=== PATIENT | male | born 1950 | race Caucasian/White ===

== ENCOUNTER 2021-06-18 10:36 | Emergency (ER) | payer MEDICARE, SELFPAY ==
[2021-06-18 10:48] VITALS: BP 131/85; PULSE 94; RESP 20; TEMP 36.8; O2SAT 100
--- NOTE | 2021-06-18 11:04 | ED.WOUNDLAC ---
HPI - Wound/Laceration General Chief Complaint: Wound/Laceration Stated Complaint: Skin Sore Time Seen by Provider: 06/18/21 11:05 Source: patient Mode of arrival: ambulatory Limitations: no limitations History of Present Illness HPI narrative: 70-year-old male presented for complaint of blister to the right middle finger, states it got bigger over the last 3 days. Endorses pain with bending his fingers. Denies known injury. Denies fever chills. Has taken one dose of tylenol. Related Data Home Medications Medication Instructions Recorded Confirmed Lantus U-100 Insulin 06/18/21 Novalog 06/18/21 amlodipine 2.5 mg PO 06/18/21 isosorbide mononitrate 30 mg PO DAILY 06/18/21 06/18/21 lovastatin 40 mg PO DAILY 06/18/21 06/18/21 metoprolol succinate 25 mg PO DAILY 06/18/21 06/18/21 nitroglycerin 0.4 mg SUBLINGUAL PRN PRN 06/18/21 06/18/21 Allergies Allergy/AdvReac Type Severity Reaction Status Date / Time morphine Allergy Swelling Verified 06/18/21 11:02 TETANUS Allergy Swelling Uncoded 06/18/21 11:03 of Lip/Tongue/Throat Review of Systems Review of Systems: CONSTITUTIONAL: Denies body aches, fever, chills, or sweats. EYES: Denies visual changes, redness, or discharge. ENT: Denies rhinorrhea, congestion, sore throat, or otalgia. CARDIOVASCULAR: Denies chest pain, palpitations, or edema. RESPIRATORY: Denies cough or dyspnea. GASTROINTESTINAL: Denies abdominal pain, nausea, vomiting, or diarrhea. GENITOURINARY: Denies dysuria or hematuria. SKIN: blister right middle finger MUSCULOSKELETAL: Denies back pain, joint pain, or myalgia. NEUROLOGIC: Denies headache, numbness, tingling, or weakness. PSYCH: Denies depression or anxiety. PMFSH Comments At time of signature, I have reviewed and agree with nursing past medical, surgical, social and family history unless otherwise noted. Please see nursing chart for further information. There is no relevant family history pertinent to the presenting complaint Exam Narrative: GENERAL: Well-appearing HEAD: Normocephalic, atraumatic. EYES: conjunctivae clear, and EOMI. ENT: Mucous membranes moist. Oropharynx without edema, erythema or lesions. NECK: Supple. No lymphadenopathy CHEST: Clear to auscultation. No respiratory distress. HEART: Regular rate and rhythm. SKIN: Warm, dry. right 3rd digit blister intact covering dorsal aspect between PIP and DIP with mild erythema to the DIP, no swelling/ drainage noted; limited ROM due to pain NEURO: Alert and oriented x3. PSYCH: Normal mood and affect Course Course Emergency Course: Patient is aware of diagnosis, understands and agrees to treatment plan. Anticipatory guidance given. Patient agrees to follow-up as directed and is aware of reasons to seek care at the emergency department. Portions of this record may have been created with voice recognition software Level of Care: Express Care Visit Vital Signs Vital signs: Vital Signs Temperature 98.2 F 06/18/21 10:48 Pulse Rate 94 06/18/21 10:48 Respiratory Rate 20 06/18/21 10:48 Blood Pressure 131/85 06/18/21 10:48 Pulse Oximetry 100 06/18/21 10:48 Temperature 98.2 F 06/18/21 10:48 Pulse Rate 94 06/18/21 10:48 Respiratory Rate 20 06/18/21 10:48 Blood Pressure 131/85 06/18/21 10:48 Pulse Oximetry 100 06/18/21 10:48 Reviewed MDM - Wound/Laceration MDM Narrative Medical decision making narrative: Presented for wound evaluation. Wound cleansed with Primaderm, neosporin and nonadhesive telfa applied with tube gauze. He is advised to f/u with PCP. v/u. Differential Diagnosis Differential diagnosis: Likely laceration, abscess and other (blister) Discharge Plan Discharge Clinical Impression: Blister Patient Disposition: Home, Self-Care Condition: Stable Instructions: Antibiotic Form, Blister (ED) Additional Instructions: Keep the area clean and dry - cleanse with warm water and mild soap and allow to fully
== END 2021-06-18 11:26 | disposition home or self-care (01) ==
PROVIDERS: Emergency Provider Nurse Practitioner Family
DX: S60.422A Blister (nonthermal) of right middle finger, initial encounter (principal); X58.XXXA Exposure to other specified factors, initial encounter; I10 Essential (primary) hypertension; Z95.5 Presence of coronary angioplasty implant and graft
CPT/HCPCS: 99213; G0463